=== PATIENT | female | born 1970 | race Hispanic/Latino ===

== ENCOUNTER 2017-09-02 10:32 | Emergency (ER) | payer OTHER ==
[2017-09-02 10:50] VITALS: O2SAT 99; BMI 48.0
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
[2017-09-02 12:40] VITALS: BP 120/77; PULSE 68; RESP 20; TEMP 98.6
== END 2017-09-02 12:45 | disposition home or self-care (01) ==
LOC: C.ER 10:32
DX: T14.8XXA Other injury of unspecified body region, initial encounter (principal); V49.9XXA Car occupant (driver) (passenger) injured in unspecified traffic accident, initial encounter; E78.00 Pure hypercholesterolemia, unspecified; E11.9 Type 2 diabetes mellitus without complications; I10 Essential (primary) hypertension